=== PATIENT | male | born 1950 | race Caucasian/White ===

== ENCOUNTER → 2017-12-02 | Day surgery (SDC) | payer MEDICARE ==
[2017-12-01 11:57] LABS: BASOPHILS # (AUTO) 0.1 (0.0-0.1); EOSINOPHILS # (AUTO) 0.3 (0.0-0.4); EOSINOPHILS % 2.7 % (0.0-6.0); HEMATOCRIT 43.8 % (38.2-49.6); HEMOGLOBIN 14.7 g/dL (14.0-18.0); LYMPHOCYTES % 28.2 % (18.0-39.1); MEAN CORPUSCULAR HEMOGLOBIN 31.3 pg (28-32); MEAN CORPUSCULAR HGB CONC 33.6 g/dL (31-35); MEAN CORPUSCULAR VOLUME 93.4 fL (81-99); MONOCYTES # (AUTO) 0.7 (0.2-0.8); MONOCYTES % 6.3 % (4.4-11.3); NEUTROPHILS # (AUTO) 6.4 (2.1-6.9); NEUTROPHILS % 60.7 % (38.7-80.0); PLATELET COUNT 249 x10e3/uL (140-360); RED BLOOD COUNT 4.69 x10e6/uL (4.3-5.7); RED CELL DISTRIBUTION WIDTH 14.1 % (11.7-14.4)
[2017-12-01 12:17] LABS: ALBUMIN 3.5 g/dL (3.5-5.0); ANION GAP 15.1 mmol/L (8-16); CALCIUM 10.3 mg/dL (8.4-10.2); CREATININE, SERUM 1.5 mg/dL (0.72-1.25); POTASSIUM 5.1 mmol/L (3.5-5.1)
[2017-12-02] VITALS (9 sets, daily range): BP systolic 99–155; BP diastolic 55–93
[~2017-12-02] VITALS: Ht 172.7 cm; Wt 108.9 kg
[~2017-12-02] MED LIST: AMLODIPINE BESY10 MG PO; ASPIR 8181 MG PO; FENTANYL CITRATE/PF 100MCG/2 ML INJ ONE; GLIMEPIRIDE2 MG PO; HEPARIN SOD (PORCINE) 1000 UNIT/ML 30ML ONE; HEPARIN SOD/SOD CHLORIDE 2,000 ML ONE; HYDROCHLOROTH12.5 MG PO; IOPAMIDOL 370 MG/ML 200 ML INFUS..BTL INJ ONE; LIDOCAINE HCL 2% LOCAL 20 ML VIAL ONE; LYRICA75 MG PO; METFORMIN HCL500 MG PO; MIDAZOLAM HCL 2 MG/2 ML VIAL ONE; NITROGLYCERIN/D5W 200 MCG/ML 250 ML ONE; NORCO 10-325 T1 EACH PO; PRAVASTATIN SOD20 MG PO; SODIUM CHLORIDE 0.9% 250ML 250 ML ONE; TRAMADOL HCL E300 MG PO; VERAPAMIL HCL 2.5 MG/ML 2 ML VIAL ONE; VITAMIN D35000 UNIT PO
--- NOTE | 2017-12-02 16:08 | Operative Report ---
DATE OF PROCEDURE: December 02, 2017 INDICATIONS: Coronary artery disease. Abnormal stress test. PROCEDURES PERFORMED: 1. Left heart catheterization, selective coronary angiography. 2. Deployment right wrist transradial band. COMPLICATIONS: None. RECOMMENDATIONS: Aggressive medical therapy including external counterpulsations or coronary artery bypass surgery. Access obtained in the right radial artery. A 5-Upper Sorbian sheath was placed. Diagnostic coronary angiogram revealed 50% left main. Stent in the proximal left anterior descending artery and 70% in-stent re-stenosis mid and distal left anterior descending artery. Diffuse 50% to 70%,stenosis. This was a 2 mm vessel. Ramus intermedius completely occluded and filled via collaterals. Circumflex had moderate disease. Right coronary artery proximal 50% stenosis. Ostial right posterior descending artery with 70% stenosis. Grade I collaterals filled the circumflex from the right coronary system. No intervention was deemed necessary at this point. Right wrist TR band applied. Patient discharged home. Job#: [id number]
== END | disposition home or self-care (01) ==
LOC: CATH LAB 11:58
PROVIDERS: ATTEND Internal Medicine Interventional Cardiology
CPT/HCPCS: 36415; 80053; 80061; 85025; J1644; J2001; J2250; J7050; Q9967